=== PATIENT | female | born 1955 | race Caucasian/White ===

== ENCOUNTER 2017-01-19 14:26 | Outpatient (CLI) | payer MEDICAID ==
--- NOTE | 2017-01-19 15:58 | XRAY Report ---
BILATERAL HIPS AND PELVIS: 01/19/2017 CLINICAL INDICATION: Bilateral hip pain. FINDINGS: Frontal view of the hips and pelvis and bilateral frogleg lateral views of the hips demons trate mild bilateral hip osteoarthritis. There is no evidence of fracture or dislocation. No radiopaq ue foreign body is seen in the soft tissues. IMPRESSION: MILD BILATERAL HIP OSTEOARTHRITIS. JOB #: [id number] EXT JOB #:[id number]
== END 2017-01-19 14:27 | disposition home or self-care (01) ==
LOC: DI.S 14:26
PROVIDERS: ATTEND Nurse Practitioner Family
DX: M16.0 Bilateral primary osteoarthritis of hip (principal)
CPT/HCPCS: 73521

== ENCOUNTER 2017-01-30 11:43 | Outpatient (CLI) | payer MEDICAID ==
--- NOTE | 2017-01-30 17:17 | Ultrasound Report ---
PELVIC ULTRASOUND: 01/30/2017 CLINICAL INDICATION: Bilateral pelvic pain. TECHNIQUE: Transabdominal pelvic ultrasound performed for global evaluation. Transvaginal pelvic ul trasound performed for detailed evaluation. Real-time scanning performed and static images obtained. The uterus is surgically absent. Neither ovary is identified, and are presumed surgically absent. N o adnexal mass or free fluid is appreciated on transabdominal or transvaginal scanning. The visualiz ed portions of the urinary bladder appear unremarkable. IMPRESSION: CHANGES OF HYSTERECTOMY. NO EVIDENCE OF ADNEXAL MASS OR FREE FLUID. JOB #: [id number] EXT JOB #:[id number]
== END 2017-01-30 11:44 | disposition home or self-care (01) ==
LOC: DI 11:43
PROVIDERS: ATTEND Nurse Practitioner Family
DX: R10.9 Unspecified abdominal pain (principal); Z90.710 Acquired absence of both cervix and uterus
CPT/HCPCS: 76830; 76856

== ENCOUNTER 2017-07-12 10:58 | Outpatient (CLI) | payer BC ==
[2017-07-12 17:47] LABS: BASOPHILS # (AUTO) 0.1 10^3/uL (0.0-0.1); BASOPHILS % (AUTO) 1.7 %; EOSINOPHILS # (AUTO) 0.1 10^3/uL (0.0-0.7); EOSINOPHILS % (AUTO) 2.6 %; HGB - HEMOGLOBIN 14.1 g/dL (12.0-16.0); LYMPHOCYTES # (AUTO) 2.1 10^3/uL (1.5-3.5); LYMPHOCYTES % (AUTO) 44.4 %; MEAN CORPUSCULAR HEMOGLOBIN 31.9 pg (27.0-31.0); MEAN CORPUSCULAR HGB CONC 32.8 g/dL (32.0-36.0); MEAN CORPUSCULAR VOLUME 97.4 fL (81.0-99.0); MEAN PLATELET VOLUME 7.5 fL (7.9-10.8); MONOCYTES # (AUTO) 0.5 10^3/uL (0.0-1.0); MONOCYTES % (AUTO) 10.7 %; NEUTROPHILS # (AUTO) 1.9 10^3/uL (1.5-6.6); NEUTROPHILS % (AUTO) 40.6 %; PLT - PLATELET COUNT 249 10^3/uL (130-450); RED BLOOD COUNT 4.41 10^6/uL (4.20-5.40); RED CELL DISTRIBUTION WIDTH 12.4 % (12.0-15.0); WHITE BLOOD COUNT 4.8 x10^3/uL (4.8-10.8)
[2017-07-12 17:52] LABS: ALBUMIN 4.3 g/dL (3.2-5.5); ALBUMIN/GLOBULIN RATIO 1.5 (1.0-2.2); ALKALINE PHOSPHATASE 42 IU/L (42-121); ALT ALANINE AMINOTRANSFERASE 19 IU/L (10-60); AST ASPARTATE AMINOTRANSFERASE 20 IU/L (10-42); BUN - BLOOD UREA NITROGEN 13 mg/dL (6-20); CALCIUM 9.4 mg/dL (8.5-10.3); CARBON DIOXIDE - CO2 27 mmol/L (21-32); CHLORIDE 102 mmol/L (101-111); CHOL/HDL RATIO 4.4 (<4.4); CHOLESTEROL 262 mg/dL; CREATININE 0.8 mg/dL (0.4-1.0); GFR - MDRD 73 (>89); GLUCOSE 93 mg/dL (70-100); HDL CHOLESTEROL 60 mg/dL; LDL CHOLESTEROL,CALCULATED 182 mg/dL; SODIUM 136 mmol/L (135-145); TOTAL PROTEIN 7.1 g/dL (6.7-8.2); VLDL CHOLESTEROL 20 mg/dL
== END 2017-07-12 10:59 | disposition home or self-care (01) ==
LOC: LAB.F 10:58
PROVIDERS: ATTEND Nurse Practitioner Family
DX: E78.5 Hyperlipidemia, unspecified (principal); M25.50 Pain in unspecified joint
CPT/HCPCS: 36415; 80053; 80061; 83721; 84443; 85025

== ENCOUNTER 2018-09-24 15:50 | Outpatient (CLI) | payer BC, MEDICAID ==
--- NOTE | 2018-09-26 15:09 | Mammography Report ---
Reason: SCREENING MAMMO Procedure Date: 09/24/2018 Accession Number: [id number] / [id number] Procedure: NETTIE - Screening Mammo w/Kael CPT Code: FULL RESULT: EXAM: Screening Mammo w/Kael DATE: 09/24/2018 4:31 PM CLINICAL HISTORY: Screening TECHNIQUE: (B) - Bilateral CC and MLO views were obtained. In addition bilateral 3-D mammography was performed. COMPARISON: None PARENCHYMAL PATTERN: (A) - The breasts demonstrate scattered fibroglandular densities bilaterally. FINDINGS: There are no suspicious masses, calcifications, or areas of distortion. IMPRESSION: Negative examination. BI-RADS category 1. RECOMMENDATION: (ANNUAL) - Recommend routine annual screening mammography. BI-RADS CATEGORY: (1) - Negative. STANDARD QUALIFYING STATEMENTS: 1. This examination was not reviewed with the aid of Computer-Aided Detection (CAD). 2. A negative or benign imaging report should not preclude biopsy if clinically suspicious findings are present. 3. Dense breasts may obscure an underlying neoplasm. 4. This examination was reviewed with the aid of 3D breast imaging (tomosynthesis).
== END 2018-09-24 15:51 | disposition home or self-care (01) ==
LOC: MERGE 15:50 → DI 15:50
PROVIDERS: ATTEND Naprapath
DX: Z12.31 Encounter for screening mammogram for malignant neoplasm of breast (principal)
CPT/HCPCS: 77063; 77067

== ENCOUNTER 2018-09-24 15:55 | Outpatient (CLI) | payer BC, MEDICAID ==
--- NOTE | 2018-09-26 15:25 | DEXA Report ---
Reason: POST MENOPAUSAL Procedure Date: 09/24/2018 Accession Number: [id number] / [id number] Procedure: DEX - Dexa Spine and/or Hip CPT Code: FULL RESULT: EXAM: Dexa Spine and/or Hip DATE: 09/24/2018 4:53 PM CLINICAL HISTORY: POST MENOPAUSAL OSTEOPOROSIS SCREENING TECHNIQUE: Dual energy x-ray absorptiometry (DXA) was performed on a [employer] System. Regions measured are the AP Spine, femoral neck, and if needed forearm. COMPARISON: None. In accordance with the International Society for Clinical Densitometry (ISCD) guidelines, data from previous exams may be reanalyzed using current recommendations and techniques. This is done to allow a more accurate basis for comparison with the current study. FINDINGS: The data for the lumbar spine is as follows: BMD (g/cm/cm) T-SCORE Z-SCORE REGION L1 0.844 -2.4 -1.2 L2 0.981 -1.8 -0.7 L3 0.950 -2.1 -0.9 L4 1.015 -1.5 -0.4 TOTAL 0.953 -1.9 -0.8 NOTE: All evaluable vertebrae are used for classification The data for the hip is as follows: BMD (g/cm/cm) T-SCORE Z-SCORE REGION Neck 0.868 -1.2 0.0 TOTAL 0.878 -1.0 -0.2 NOTE: The femoral neck or total proximal femur, whichever is lowest, is used for classification. IMPRESSION: THE WHO CLASSIFICATION BASED ON THE INTERNATIONAL REFERENCE STANDARD IS OSTEOPENIA. THE FRACTURE RISK IS INCREASED. RECOMMENDATION: Patients with diagnosis of osteoporosis or osteopenia should have regular bone mineral density assessment. For those eligible for Medicare, routine testing is allowed once every 2 years. Testing frequency can be increased for patients who have rapidly progressing disease or for those who are receiving medical therapy to restore bone mass. COMMENT: World Health Organization (WHO) definitions for osteoporosis and osteopenia: NORMAL BMD: T-score at -1.0 or higher, fracture risk is low OSTEOPENIA BMD: T-score between -1.0 and -2.5, fracture risk is increased. OSTEOPOROSIS BMD: T-score at -2.5 or lower, fracture risk is high. National Osteoporosis Foundation recommends: 1. Obtain adequate dietary calcium (at least 1200 mg per day) and vitamin D (400-800 international units per day). 2. Participate, as appropriate, in regular weightbearing and muscle-strengthening exercise. 3. Avoid tobacco use and reduce alcohol and caffeine intake. 4. For more detailed information see the website at www.NOF.org.
== END 2018-09-24 15:56 | disposition home or self-care (01) ==
LOC: MERGE 15:55 → DI 15:55
PROVIDERS: ATTEND Naprapath
DX: Z13.820 Encounter for screening for osteoporosis (principal); M85.89 Other specified disorders of bone density and structure, multiple sites; Z78.0 Asymptomatic menopausal state
CPT/HCPCS: 77080

== ENCOUNTER 2019-04-25 15:14 | Outpatient (CLI) | payer BC, MEDICAID ==
--- NOTE | 2019-04-25 19:50 | XRAY Report ---
Reason: NECK PAIN Procedure Date: 04/25/2019 Accession Number: [id number] / [id number] Procedure: XRS - Cervical Spine Complete CPT Code: Final Report FULL RESULT: EXAM: CERVICAL SPINE RADIOGRAPHY EXAM DATE: 04/25/2019 03:56 PM. CLINICAL HISTORY: NECK PAIN. COMPARISONS: None. TECHNIQUE: 5 views. FINDINGS: Alignment: Normal. No spondylolisthesis or scoliosis. Bones: The cervical vertebral bodies and posterior elements are well-visualized from the skull base through C7-T1. No fractures or bone lesions. Disks: Postsurgical changes of C3-C7 anterior cervical diskectomy and fusion, with anterior fusion constructs remaining in place at C3-C4 and C6-C7. There is irregular sclerosis at the inferior endplate of C6 and superior endplate of C7, without visible bridging ossification. Additionally, there is lucency surrounding the C7 fixation screws, with the screw heads 2 mm proud to the plate and the plate displaced anteriorly away from the vertebral body at C7. Hardware at C3-C4 is intact and without evidence of hardware loosening. Solid osseous bridging across the C3-C4, C4-C5, and C5-C6 disk spaces. Facets: Severe C7-T1 facet arthropathy. C3-C4 facets are fused. Neural Foramina: Foramina are not well profiled on oblique views. There is at least moderate foraminal stenosis bilaterally at C6-C7. Soft Tissues: Normal. No prevertebral soft tissue swelling. The visualized lung apices are clear. IMPRESSION: 1. Postsurgical changes of C6-C7 ACDF, with pseudoarthrosis and evidence of hardware loosening at the C7 screws. 2. C3-C4, C4-C5, and C5-C6 ACDF, with solid osseous fusion across the disk spaces at these levels. 3. Severe C7-T1 facet arthropathy. 4. Poorly profiled neural foramina. At least moderate bilateral foraminal stenosis at C6-C7. RADIA
== END 2019-04-25 15:15 | disposition home or self-care (01) ==
LOC: DI.S 15:14
PROVIDERS: ATTEND Naprapath
DX: T84.226A Displacement of internal fixation device of vertebrae, initial encounter (principal); M47.813 Spondylosis without myelopathy or radiculopathy, cervicothoracic region; Z98.1 Arthrodesis status; M96.0 Pseudarthrosis after fusion or arthrodesis
CPT/HCPCS: 72040; 72050

== ENCOUNTER 2019-05-08 13:06 | Day surgery (SDC) | payer BC, MEDICAID ==
[2019-05-08] MEDS ORDERED: fentaNYL 250 MCG/5 ML VIAL IVP ONE (13:07)
[2019-05-08] MEDS ORDERED: MIDAZOLAM 2 MG/2 ML VIAL IVP ONE (13:07)
[2019-05-08] MEDS ORDERED: LACTATED RINGERS 1,000 ML IV ONE (13:32)
[2019-05-08 15:42] VITALS: BP 97/80
== END 2019-05-08 13:07 | disposition home or self-care (01) ==
LOC: SDS 13:06
PROVIDERS: ATTEND Surgery
PROC: 0DBL8ZZ Excision of Transverse Colon, Via Natural or Artificial Opening Endoscopic (ICD-10-PCS; 2019-05-08)
PROC: 0DBH8ZZ Excision of Cecum, Via Natural or Artificial Opening Endoscopic (ICD-10-PCS; principal; 2019-05-08 14:45)
DX: Z12.11 Encounter for screening for malignant neoplasm of colon (principal); K63.5 Polyp of colon; K64.8 Other hemorrhoids; K57.30 Diverticulosis of large intestine without perforation or abscess without bleeding; Z80.0 Family history of malignant neoplasm of digestive organs
CPT/HCPCS: 45380; J3010; J7120

== ENCOUNTER 2019-12-29 07:00 | Outpatient (CLI) | payer BC, MEDICAID | END 2019-12-29 23:59 | disposition home or self-care (01) | LOC: LAB.R 07:00 | PROVIDERS: ATTEND Physician Assistant | DX: N30.00 Acute cystitis without hematuria (principal) | CPT/HCPCS: 87086; 87181 ==

== ENCOUNTER 2020-02-18 12:20 | Outpatient (CLI) | payer BC, MEDICAID | END 2020-02-18 12:21 | disposition home or self-care (01) | LOC: COV 12:20 | PROVIDERS: ATTEND Family Medicine | DX: R05 Cough (principal); R53.83 Other fatigue; J02.9 Acute pharyngitis, unspecified; R09.81 Nasal congestion; Z20.828 Contact with and (suspected) exposure to other viral communicable diseases ==

== ENCOUNTER 2021-04-11 12:22 | Outpatient (CLI) | payer BC, MEDICAID ==
--- NOTE | 2021-04-11 13:10 | XRAY Report ---
PROCEDURE: Cervical Spine Complete INDICATIONS: POST PROCEDURAL COMPLICATIONS AND DISORDERS OF NERVOUS SYSTEM TECHNIQUE: 5 view(s) of the cervical spine were acquired. COMPARISON: April 25, 2019 FINDINGS: C-SPINE: No acute, displaced fracture or retropulsion. Post surgical changes at C3-T1. Redemonstrated anterior cervical fixation hardware at C3-4. Neuroforaminal narrowing, most prominent at C2-4 and an d C6-7. Interval removal of anterior fixation hardware at C6-7. SOFT TISSUES: No prevertebral soft tissue thickening. IMPRESSION: 1.No acute osseous abnormality of the cervical spine. Reviewed by: Mohinder Mirza MD on 04/11/2021 1:08 PM PST Approved by: Mohinder Mirza MD on 04/11/2021 1:08 PM [facility] Station ID: [id number]
== END 2021-04-11 12:23 | disposition home or self-care (01) ==
LOC: DI.S 12:22
PROVIDERS: ATTEND Naturopath
DX: G97.2 Intracranial hypotension following ventricular shunting (principal)

== ENCOUNTER 2023-01-30 15:17 | Outpatient (CLI) | payer MEDICARE ==
--- NOTE | 2023-01-31 09:39 | Mammography Report ---
BILATERAL DIGITAL SCREENING MAMMOGRAM 3D/2D WITH EXAGGERATED CC: 01/30/2023 CLINICAL: Routine screening. Comparison is made to exams dated: 10/25/2021 mammogram, 09/24/2018 mammogram, 06/28/2015 mammogram - [facility], and 12/25/2011 mammogram - [facility]. There are scattered areas of fibroglandular density in both breasts (category b / 25%-50% glandular t issue). No significant masses, calcifications, or other findings are seen in either breast. There has been no significant interval change. IMPRESSION: NEGATIVE There is no mammographic evidence of malignancy. A 1 year screening mammogram is recommended. Based on the Tyrer Cuzick model (a risk assessment model) the patients lifetime risk is 6.1% and her 10 year risk is 2.9%. According to the ACR, ACS, and NCCN guidelines, an annual breast MRI exam miley g with mammogram is recommended if the patients lifetime risk is 20% or greater. This exam was interpreted at Station ID: [id number]. NOTE: For mammograms, a report in lay terms will be sent to the patient. Approximately 15% of breast malignancies will not be visualized mammographically. In the management of a palpable breast mass, a negative mammogram must not discourage biopsy of a clinically suspicious lesion. Electronically Signed By: Paul buitrago/pasha:01/30/2023 16:56:58 letter sent: No_Letter ACR BI-RADS Category 1: Negative 3341F PARENCHYMAL PATTERN: (A) - The breast(s) demonstrate(s) scattered fibroglandular densities. BI-RADS CATEGORY: (1) - 1 Mammogram [id number] 1 year screening LATERALITY: (B)
== END 2023-01-30 15:18 | disposition home or self-care (01) ==
LOC: DI.S 15:17
DX: Z12.31 Encounter for screening mammogram for malignant neoplasm of breast (principal); R92.323 Mammographic fibroglandular density, bilateral breasts

== ENCOUNTER 2023-10-03 11:38 | Outpatient (CLI) | payer MEDICARE ==
[2023-10-03 16:05] LABS: CRP - C-REACTIVE PROTEIN < 0.5 mg/dL (<0.5)
== END 2023-10-03 11:39 | disposition home or self-care (01) ==
LOC: LAB.S 11:38
PROVIDERS: ATTEND Internal Medicine
DX: D75.89 Other specified diseases of blood and blood-forming organs (principal); M25.50 Pain in unspecified joint
CPT/HCPCS: 36415; 82607; 82746; 86140

== ENCOUNTER 2023-10-12 11:54 | Outpatient (CLI) | payer MEDICARE ==
--- NOTE | 2023-10-12 16:08 | MRI Report ---
PROCEDURE: Cervical Spine WO INDICATIONS: CERVICAL SPINE FUSION TECHNIQUE: Noncontrast sagittal T1 spin echo and T2 fast spin echo, sagittal STIR, foraminal oblique sagittal T2 fast spin echo, and axial gradient echo or T2 fast spin echo through the cervical spine. COMPARISON: Cervical spine plain films dated 04/11/2021. FINDINGS: Image quality: Excellent. Alignment and Curvature: Trace anterolisthesis of C7 on T1. There is otherwise normal bony alignment . Remote ACDF at C3-C4 and C7-T1. Mature interbody fusion at C3-C4 through C6-C7. Bilateral facet fix ators at C6-C7 and C7-T1. Bone Marrow: Marrow demonstrates normal overall signal. Spinal Cord: Visualized spinal cord has normal size and signal. No cerebellar tonsillar herniation. Paraspinous Soft Tissues: No paravertebral masses. Prevertebral soft tissues are normal in thicknes s. C2-C3: No canal stenosis. Somewhat prominent bilateral facet hypertrophy. Moderate to severe bilater al foraminal narrowing with a mild degree of bilateral foraminal C3 nerve root impingement C3-C4: Fused. No canal stenosis. No significant foraminal stenosis. C4-C5: . No canal stenosis or significant foraminal stenosis. C5-C6: Fused. No canal stenosis or significant foraminal stenosis. C6-C7: Fused. No canal stenosis. Tach artifact from bilateral facet joint fixators. Question right f oraminal narrowing. C7-T1: Fused. No canal stenosis. Bilateral facet joint fixators. Suspect severe left foraminal narro wing. IMPRESSION: 1. Extensive previous fusion, spanning from C3-C4 through C7-T1. Findings include multilevel interbod y fusions and ACDF at C3-C4 and C7-T1. Additionally, there are facet joint fixators at C6-C7 and C7-T 1. 2. No canal stenosis identified. 3. Prominent bilateral facet hypertrophy at C2-C3 with resultant moderate to severe bilateral foramin al narrowing. 4. Question right foraminal narrowing at C6-C7. Comment: Consider CT for further evaluation of possible right C6-C7 foraminal narrowing, and if this supports clinical symptomatology. Reviewed by: Karel Frazeir MD on 10/12/2023 4:06 PM PDT Approved by: Karel Frazier MD on 10/12/2023 4:06 PM PDT Station ID: [id number]
== END 2023-10-12 11:55 | disposition home or self-care (01) ==
LOC: DI 11:54
PROVIDERS: ATTEND Internal Medicine
DX: M47.22 Other spondylosis with radiculopathy, cervical region (principal); M48.02 Spinal stenosis, cervical region; Z98.1 Arthrodesis status